=== PATIENT | female | born 1945 | race Caucasian/White ===

== ENCOUNTER → 2024-02-05 | Outpatient (CLI) | payer MEDICARE | END | disposition home or self-care (01) | LOC: RESCLI 14:38 | PROVIDERS: ATTEND Student in an Organized Health Care Education/Training Program | DX: E03.9 Hypothyroidism, unspecified (principal); G43.809 Other migraine, not intractable, without status migrainosus; M54.30 Sciatica, unspecified side; L65.9 Nonscarring hair loss, unspecified; E55.9 Vitamin D deficiency, unspecified; E53.8 Deficiency of other specified B group vitamins; Z88.8 Allergy status to other drugs, medicaments and biological substances; Z91.040 Latex allergy status; Z86.79 Personal history of other diseases of the circulatory system; Z98.890 Other specified postprocedural states ==